=== PATIENT | male | born 2000 | race Caucasian/White ===

== ENCOUNTER 2024-10-19 16:14 | Emergency (ER) | payer OTHER ==
[~2024-10-19] VITALS: Ht 157.5 cm; Wt 106.6 kg
[2024-10-19 17:37] VITALS: BP 126/65; TEMP 98.1; O2SAT 10
== END 2024-10-19 17:38 | disposition home or self-care (01) ==
LOC: ER 16:20
DX: M54.9 Dorsalgia, unspecified (principal); M54.2 Cervicalgia; Z60.2 Problems related to living alone; V43.52XA Car driver injured in collision with other type car in traffic accident, initial encounter; Y93.89 Activity, other specified; Y92.415 Exit ramp or entrance ramp of street or highway as the place of occurrence of the external cause; Y99.8 Other external cause status